=== PATIENT | female | born 1960 | race Caucasian/White ===

== ENCOUNTER → 2022-06-29 16:24 | Outpatient (BNVA) | payer BC, SELFPAY | PROVIDERS: PCP Nurse Practitioner Family; Visit Provider Nurse Practitioner Family | DX: E66.9 Obesity, unspecified (principal); Z68.31 Body mass index [BMI] 31.0-31.9, adult | CPT/HCPCS: 80053; 84443; 85025 ==

== ENCOUNTER → 2023-07-17 09:37 | Outpatient (BNVA) | payer BC, SELFPAY | PROVIDERS: PCP Nurse Practitioner Family; Visit Provider Nurse Practitioner Family | DX: S93.602A Unspecified sprain of left foot, initial encounter (principal); S83.91XA Sprain of unspecified site of right knee, initial encounter; X58.XXXA Exposure to other specified factors, initial encounter; M17.11 Unilateral primary osteoarthritis, right knee | CPT/HCPCS: 73560; 73630 ==

== ENCOUNTER → 2024-04-30 09:14 | Outpatient (BNVA) | payer MEDICARE, SELFPAY | PROVIDERS: PCP Nurse Practitioner Family; Visit Provider Nurse Practitioner Family | DX: M25.561 Pain in right knee (principal); M17.11 Unilateral primary osteoarthritis, right knee | CPT/HCPCS: 73562 ==

== ENCOUNTER → 2024-05-14 08:33 | Outpatient (BNVA) | payer MEDICARE, SELFPAY | PROVIDERS: PCP Nurse Practitioner Family; Visit Provider Physician Assistant | DX: M17.11 Unilateral primary osteoarthritis, right knee; M23.41 Loose body in knee, right knee; M25.561 Pain in right knee; M25.562 Pain in left knee | CPT/HCPCS: 20610; 73560; 73565; 99203; J3301 ==

== ENCOUNTER → 2024-09-11 08:43 | Outpatient (BNVA) | payer MEDICARE, SELFPAY | PROVIDERS: PCP Nurse Practitioner Family; Visit Provider Physician Assistant | DX: M17.11 Unilateral primary osteoarthritis, right knee (principal); M23.41 Loose body in knee, right knee | CPT/HCPCS: 20610; 99213; J3301; J9999 ==

== ENCOUNTER → 2024-12-17 08:52 | Outpatient (BNVA) | payer MEDICARE, OTHER, SELFPAY | PROVIDERS: PCP Nurse Practitioner Family; Visit Provider Physician Assistant | DX: M17.11 Unilateral primary osteoarthritis, right knee (principal); M23.41 Loose body in knee, right knee | CPT/HCPCS: 99214 ==

== ENCOUNTER 2024-12-30 15:19 | Outpatient (CLI) | payer MEDICARE, OTHER, SELFPAY ==
--- NOTE | 2024-12-30 15:30 | CT_ITS ---
WS: [id number] CT RIGHT KNEE, NONCONTRAST TECHNIQUE: Noncontrast CT of the RIGHT knee to include the RIGHT hip and ankle. CLINICAL INFORMATION: surgical planning, Right TKA COMPARISON: None. DLP: 943.[address] scans at [facility] use at least one of these dose optimization techniques: automated exposure control; mA and/or kV adjustment per patient size (includes targeted exams where dose is matched to clinical indication); or iterative reconstruction. FINDINGS: Sigmoid diverticulosis. Advanced tricompartmental arthritis RIGHT knee. Hypertrophic patella. Trace suprapatellar fluid. Calcified loose bodies. Hypertrophic changes along the joint line. Vascular calcification. CT/CT knee RT [facility] [id number] IMPRESSION: Images obtained for preoperative purposes.
== END 2024-12-30 15:20 | disposition home or self-care (01) ==
LOC: RAD 15:20
PROVIDERS: PCP Nurse Practitioner Family; Visit Provider Physician Assistant
DX: Z01.818 Encounter for other preprocedural examination (principal); M13.861 Other specified arthritis, right knee; K57.30 Diverticulosis of large intestine without perforation or abscess without bleeding
CPT/HCPCS: 73700

== ENCOUNTER → 2025-01-15 13:05 | Outpatient (BNVA) | payer MEDICARE, OTHER, SELFPAY | PROVIDERS: PCP Nurse Practitioner Family; Visit Provider Family Medicine | DX: Z01.818 Encounter for other preprocedural examination (principal) | CPT/HCPCS: 81000 ==

== ENCOUNTER → 2025-01-21 11:52 | Outpatient (BNVA) | payer MEDICARE, OTHER, SELFPAY | PROVIDERS: PCP Nurse Practitioner Family; Visit Provider Student in an Organized Health Care Education/Training Program | DX: Z01.818 Encounter for other preprocedural examination (principal) | CPT/HCPCS: 36415; 80053; 81001; 85025 ==

== ENCOUNTER 2025-02-03 14:43 | Observation (INO) | payer MEDICARE, OTHER, SELFPAY ==
[2025-02-03] VITALS (20 sets, daily range): BP systolic 110–173; BP diastolic 69–107; PULSE 74–108; RESP 14–25; TEMP 36.1–36.8; O2SAT 90–99; BMI 32.1
[2025-02-03] MEDS: acetaminophen 1,000 MG/100 ML PIGGYBACK 400 MG IV ×3 (09:11→23:59)
[2025-02-03 09:18] LABS: Hematocrit 44.1 % (36-47); Hemoglobin 14.10 g/dL (11.27-16.99); Mean Corpuscular HGB Conc 32.0 g/dL (30-55); Mean Corpuscular Hemoglobin 29.3 pg (27-33); Mean Corpuscular Volume 91.7 fl (85-98); Nucleated Red Blood Cells % 0 %; Platelet Count 293 10^3/cmm (157-399); Red Blood Count 4.81 10^6/uL (3.85-5.65); White Blood Count 7.06 10^3/uL (3.29-11.43)
[2025-02-03 09:39] LABS: Anion Gap 14.9 (5-19); Blood Urea Nitrogen 17 mg/dL (8-23); Calcium 9.7 mg/dL (8.5-10.5); Carbon Dioxide 24 mmol/L (22-29); Chloride 103 mmol/L (98-107); Creatinine Clr Calc Pharmacy 65.0015; Glucose 96 mg/dL (65-115); Osmolality Calculated 287 mOsm/kg (285-295); Potassium 3.9 mmol/L (3.5-5.1); Sodium 138 mmol/L (136-145)
--- NOTE | 2025-02-03 10:52 | ANES.PREANE2 ---
Pre-Anesthetic Assessment Height/Weight: Height 5 ft 1 in Weight 170 lb Temp Pulse Resp BP Pulse Ox O2 Del Method 97.5 F L 74 18 173/107 94 Room Air 02/03/25 08:53 02/03/25 08:53 02/03/25 08:53 02/03/25 08:53 02/03/25 08:53 02/03/25 09:04 Preop Diagnosis: Knee arthritis Operation Date: 02/03/25 10:25 Proposed Procedures p Horacio Robot Total Knee Arthroplasty(Right) - Keith Garza, DO Was Beta Karlee taken within 24 hours: N/A Was Clonidine taken within 24 hours: N/A Last intake: Intake Last Liquid Date 02/02/25 Last Liquid Time 21:00 Last Solid Date 02/02/25 Last Solid Time 19:00 Social No alcohol and No tobacco Exam alert, oriented x 3, clear to auscultation bilaterally and regular rate & rhythm Airway Submandibular: within normal limits Cervical ROM: within normal limits Mallampati: Class II Dentition: false and partials Anesthetic Plan ASA status: 2 Anesthesia: MAC and Regional (specify below) Other: No prior issues with anesthesia NPO since yesterday evening History of GERD, controlled with omeprazole. No current symptoms Denies any hypertension. Preop BP 173/107. Patient states that she is nervous currently Denies any pulmonary issues Recent labs reviewed acceptable for procedure Plan for spinal anesthetic with peripheral nerve block Medications/Allergies Home Medications ?Medication ?Instructions ?Recorded ?Confirmed ?Last Taken ?Type meloxicam 15 mg tablet 15 mg PO DAILY 1 month #30 tabs 10/04/24 01/30/25 Unknown Rx omeprazole 10 mg capsule,delayed 10 mg PO DAILY 12/17/24 02/03/25 02/02/25 History release Allergies Allergy/AdvReac Type Severity Reaction Status Date / Time Sulfa (Sulfonamide Allergy Intermediate rash Verified 01/30/25 12:37 Antibiotics) casein Allergy Mild unknown Verified 01/30/25 12:37 egg Allergy Mild unknown Verified 01/30/25 12:37 Yeast Allergy Unknown Verified 01/30/25 12:37 Current Medications Generic Name Dose Route Start Last Admin Trade Name Freq PRN Reason Stop Dose Admin Sodium Chloride 1,000 mls @ 30 mls/hr 02/03/25 08:45 02/03/25 09:10 Sodium Chloride 0.9% IV 02/04/25 08:44 30 mls/hr .Q24H BUSTER Administration PFSH Anesthesia Medical History Sprain of right knee Sprain of foot, left Abnormal mammogram of right breast Allergic dermatitis Social History Smoking and tobacco/nicotine status: never used tobacco/nicotine Data Anesthesia 02/03/25 09:03 02/03/25 09:03 Short CBC 02/03/25 Range/Units 09:03 WBC 7.06 (3.29-11.43) 10^3/uL Hgb 14.10 (11.27-16.99) g/dL Hct 44.1 (36-47) % MCV 91.7 (85-98) fl Plt Count 293 (157-399) 10^3/cmm Neut % (Auto) 48.9 % Neut # (Auto) 3.45 (1.8-7.7) 10^3/uL BMP 02/03/25 09:03 Sodium 138 Potassium 3.9 Chloride 103 Carbon Dioxide 24 BUN 17 Creatinine 0.8 Glucose 96 Calcium 9.7 Blood Bank 02/03/25 09:03 Blood Type A Positive Rho(D) Type Rh positive Antibody Screen Negative
--- NOTE | 2025-02-03 11:42 | W.PM.OPSUD ---
Surgery/Procedure H&P Update DATE OF PROCEDURE: February 03, 2025 DATE H&P PERFORMED: 01/21/25 H&P UPDATE INFORMATION: I have reviewed H&P completed within last 30 days, I have examined patient prior to procedure and No changes to prior documentation PREOP DIAGNOSIS: Right knee DJD PRIMARY INDICATION FOR PROCEDURE: Right knee DJD PLANNED PROCEDURE: Operation Date: 02/03/25 10:25 Proposed Procedures p Horacio Robot Total Knee Arthroplasty(Right) - Keith Garza DO
[2025-02-03] MEDS: ceFAZolin 2,000 MG in sodium chloride 0.9% (plus) 50 ML 100 MG IV ×2 (12:07→19:50)
[2025-02-03] MEDS: tranexamic acid 1,000 mg/10mL SDV 1000 MG IV (12:40)
[2025-02-03] MEDS: ROPivacaine 0.2% Premix 100 mL 200 MG INTRA-ARTI (13:00)
[2025-02-03] MEDS: tranexamic acid 1,000 mg/10mL SDV 1000 MG XX (13:00)
--- NOTE | 2025-02-03 14:15 | PM.OP ---
Operative Report Date of procedure: February 03, 2025 Surgeon: Keith Garza DO Principal Solutions Architect: Don Garza PA-C: PA was necessary for assistance in this case with leg positioning retraction and protection of neurovascular structures as well as assistance in implantation wound closure and dressing application. Procedure: Preoperative diagnosis: RIght knee degenerative joint disease Post-op diagnosis: Same Procedure done: RIght total knee arthroplasty, cemented?robotic assisted Horacio Implants: Connie triathlon size 2 femur CR cemented?RIght Connie triathlon size? 2 tibia universal baseplate cemented [place] triathlon symmetric patella size 29 mm Connie triathlon polyethylene 9mm Surgeon: Keith Garza DO Estimated blood?loss: 25 mL Tourniquet 57mins IV fluids: 1600 mL Urine output: 150 mL Complications: None Condition: stable Disposition: floor Brief History: Patient is a 64year-old female with with chronic?RIght knee degenerative joint disease.? Patient has been worked up in the outpatient setting in the orthopedic office at this point time through shared decision making given? [id number] arthritis as well as failed conservative treatment, and pt would?like to proceed with a?RIght total knee arthroplasty.? Through shared decision making elected to proceed with surgical intervention for?RIght total knee arthroplasty.? We talked about continued conservative treatment and surgical intervention as far as the risk benefits complications alternatives surgical and nonsurgical treatment options.? At this point time understanding patient risks with surgery he agrees to proceed with surgical intervention.? Once again? risk with surgery include but are not?limited to make it better make it worse blood clot, heart attack, stroke, on the table, infection, injury to nerves or vessels, persistent pain, arthrofibrosis, implant failure.? Understanding these risks patient agrees to proceed with surgical intervention consent was obtained in the preop.? All questions answered. Procedure: Patient was seen and evaluated in the preoperative holding area.? Consent was reviewed and signed with patient with plan for?RIght total knee arthroplasty.? All questions answered.? Correct extremity marked.? Patient seen and evaluated by the anesthesia department and once cleared for surgery was taken back to the operative suite.? Patient was placed into a supine position on the OR table.? All bony prominences were well-padded.? Patient was appropriately secured to the bed.? Patient underwent anesthesia per the anesthesia department.? Patient received spinal anesthesia and? Ingram catheter was placed.? A nonsterile tourniquet was applied to the?RIght thigh.? At this point in time a final timeout performed.? Patient received appropriate preoperative antibiotics and TXA. Next the?RIght?lower extremity was then prepped and draped in standard orthopedic fashion. Esmarch tourniquet was used exsanguinate the?RIght?lower extremity.? Tourniquet was insufflated to 250 mmHg. A standard anterior incision was made over midline of the knee.? Sharp scalpel excision through skin and subcutaneous tissue full-thickness skin flaps were made.? Fascia was elevated off of the extensor retinaculum was stable with medial parapatellar arthrotomy was then made.? The performed standard sequential releases..? Immediately on entry into the joint patient was found to have severe eburnated bone and tricompartmental arthritic changes noted.? With significant osteophyte formation.? Next the the patella was then stuffed and the knee was then flexed.?? Amelia was placed superiorly around the anterior aspect of the femur this was freed of synovium and I subsequently then placed by 2 femur pins to establish my femur arrays for the Horacio robot.? These were then placed bicortically and? femur array was then appropriately secured with appropriate visualization.? Next attention was turned towards the tibial rays.? These were then drilled sequentially bicortically in parallel fashion and intraincisional.? I then placed my guide as well as my tibial array on in place.? This was appropriately secured and had excellent visualization with the Horacio robot.? Next the tibial checkpoint as well as femur checkpoint were then placed.? At this point time I then subsequently established my head center as well as my medial?lateral malleoli as well as my checkpoints.? Next utilizing standard Horacio technology I then mapped out the appropriate points and confirmation points around the femur as well as the tibia in standard fashion.? Once this was then done I then removed all osteophytes in preparation for dynamic testing.? All osteophytes were removed as well as I removed the ACL and the PCL was excised due to its significant tearing and degeneration noted.? At this point time the knee was brought into full extension and we performed our standard evaluation of our gap balancing stressing his?ligaments and extension as well as flexion appropriate adjustments were made to have appropriate gap balancing in both flexion and extension.? Of note patient did have varus deformity as well as slight recurvatum and corrections were made to the implants to correct deformity to ligamentous tolerances as well as to make a tighter extension gap to accommodate for the slight recurvatum she had at baseline after osteophytes were removed. We get a preoperative plan evaluating our implants which was a size 2 femur and a size 2 tibia.? Next we brought in the Horacio robot and sequentially made our femur cuts.? All excess bony cuts were then removed.? Finally we made our tibial cut.? Once this was done a standard PCL retractor was then placed into this position I excised the medial and?lateral meniscus.? The tibial cut was then subsequently removed all excess bony debris was removed.? I then utilized a?lamina separations scientist and remove the posterior osteophytes.? At this point time sized the tibia and confirmed this was a size 2.? I utilized our blunt probe to establish rotation of tibial implant.? Once this was done I then placed my tibia size 2 trial in appropriate position and then subsequently placed tibial pins to hold this into and trialed up to a size 9 mm poly as well as a size 2 femur which was appropriately impacted in place knee was then subsequently brought into extension. Trials were then assessed,? this was stable with varus valgus stress in extension. Patient had was slightly tight in flexion laterally and had a subtle clicking within the popliteus tendon rubbing over the implant as a result this was then removed and performed over release of the popliteus tendon I subsequently replaced the poly and took the knee through range of motion which had symmetrical gap balances in flexion extension was symmetrical for examination and no rubbing/clicking from the popliteus. I had excellent balance gaps in flexion and extension with varus and valgus stresses. Patient is able to achieve range of motion of the 0 to greater than 115 degrees. At this point I was satisfied with these implants these were then verified and opened on the back table size 2 tibia, size 2 femur,? size 9 mm polythickness.? We did confirm appropriate gap balancing and stresses as well as alignment utilizing? Good Eggs and were satisfied with this plan.? ?At this point time with my trials in place I then towel clip the patella everted this made appropriate measurements subsequently utilizing freehand technique performed by patellar resurfacing this was confirmed to be appropriate resection and subsequently sized to be a 29 mm symmetric.? My drill peg guides were then clamped and appropriate position and appropriate position in the patella for appropriate tracking and parallel with the joint.? Pegs were drilled trial implant was placed and the knee was then subsequently ranged and found to have excellent patellar tracking.? Femur pegs were then drilled. All checkpoints as well as guidepins and arrays were removed and appropriate counts made.? Satisfied with our tibial placement rotation I then utilized the keel punch and prepped the tibia.? At this point time all of our trial implants were removed.?? The wound bed? was thoroughly irrigated and dried and prepped for cementation.? Cement was mixed on the back table.? Once cement was ready this was then covered onto the tibia and the tibial baseplate was then impacted and all excess cement was removed.? Next the polyethylene was then impacted into place on the tibial baseplate.? Next cement was placed onto the femur as well as under the femur implants and impacted in to place and all excess cement was extruded and removed.? Knee was taken into full extension? to clear all excess cement was removed.? Warm saline was placed over the joint.? I then towel clip patella and dried for cementation. cemented the patella into place.? This was all clamped and the cement was allowed to cure.? Thorough irrigation performed with pulse?lavage.? I then placed my periarticular injection while the cement was curing.? Once cured the knee was taken through range of motion and had excellent stability and gaps were balanced in flexion and extension.? Tourniquet was then deflated. hemostasis satisfactory with electrocautery.? Vancomycin powder placed in wound bed for antibiotic infection prophylaxis. Next I then subsequently closed the capsule with Ethibond suture as well as a running strata fix suture.? Knee was then taken through range of motion 30 times.? Next the skin was then closed in?layered fashion of running stratifix sutures of deep and subcutenous tissue and skin.? ?closed in flexion and tiana for the skin.? Incision was covered with Silverlon, with ABDs soft roll and Margarito wrap.? Patient was then awakened from anesthesia and taken to PACU in stable condition. Disposition: Patient taken to PACU in stable condition will be admitted to the floor for pain control PT/OT weight-bear as tolerated?RIght?lower extremity dressing changes as needed, DVT prophylaxis. Pain control. Patient will receive appropriate postoperative antibiotics. patient will be seen today by the internal medicine team for medical management.? Patient will follow up with the office in 2 weeks.? Patient understands agrees with current plan.? All questions answered.
--- NOTE | 2025-02-03 14:36 | XRR_ITS ---
PROCEDURE INFORMATION: Exam: XR Right Knee Exam date and time: 02/03/2025 2:38 PM Age: 64 years old Clinical indication: Device placement; Joint replacement hardware; Prior surgery; Surgery date: Post-operative (0-2 days); Surgery type: R tka; Additional info: S/P R tka, in pacu TECHNIQUE: Imaging protocol: Radiologic exam of the right knee. Views: 1 or 2 views. COMPARISON: CT knee RT [facility] [id number] 12/30/2024 3:33 PM FINDINGS: Bones/joints: Postsurgical changes from right knee arthroplasty. Hardware is intact without concerning malalignment. No periprosthetic fracture. Expected postsurgical air in the joint space. Anterior skin tiana. XR/XR knee RT 1-2V [id number] IMPRESSION: Expected postsurgical changes post right knee arthroplasty without radiographic complications.
--- NOTE | 2025-02-03 14:37 | P.BOP_ITS ---
Date of Procedure: [February 03, 2025] Surgeon: [Dr. Garza DO] Airborne Operations Superintendent(s): [Don Garza PA-C] Procedure(s) performed: [Right knee total arthroplasty with Horacio robotic assist] Findings of the procedure(s): [Right knee degenerative joint disease. Procedure went well as planned] Estimated blood loss: [25 mL] Specimen(s) removed: [Tibial and femur shavings] Post-operative diagnosis: [Right knee degenerative joint disease.]
[2025-02-03] MEDS: fentaNYL 50 mcg/mL INJ 2mL IVP ×2 (14:38→14:52)
--- NOTE | 2025-02-03 14:42 | PM.PACU ---
PACU note Narrative: Patient is a 64-year-old female who just underwent arthroplasty. Pt transferred to PACU in stable condition. Dressing is dry. pt is awake and alert. pt can wiggle toes and plantarflex and dorsiflex foot. pt able to perform straight leg raise, Femoral nerve intact. Distal pulses are palpable toes are warm and well-perfused. Cap refill is normal and under 2 seconds. Sensation to foot is intact. Pain is controlled. Exam: awake Disposition: admitted
--- NOTE | 2025-02-03 15:10 | ANE.PACU2 ---
Inpatient post-anesthesia follow up: Airway intact: Yes Vital signs: Temperature 98.3 F Pulse Rate 70 Respiratory Rate 16 Blood Pressure 152/84 Pulse Oximetry 95 Oxygen Delivery Me thod Room Air Oxygen Flow Rate 6 Fraction of Inspir ed Oxygen Hydration adequate: Yes Nausea and vomiting: No Pain level: 1 Mental status: Baseline
[2025-02-03] MEDS: mupirocin oint 22 gm 1 APPLIC NASAL (16:24)
[2025-02-03] MEDS: sennosides-docusate Tablet 2 TAB PO (16:24)
[2025-02-03] MEDS: calcium carb-vit d 600mg/400unit 1 Tablet 1 EACH PO (16:24)
[2025-02-03] MEDS: chlorhexidine gluconate 0.12% Btl 473 mL 30 ML MUCOUS MEM ×2 (16:25→23:58)
[2025-02-03] MEDS: tranexamic acid 1,000 MG/100 ML PREMIX 600 MG IV (20:29)
[2025-02-03] MEDS: ondansetron 2 mg/ML SDV 2 mL 4 MG IVP (20:53)
--- NOTE | 2025-02-03 21:55 | PM.CONSULT ---
Providers/Reason For Consult Consulting Physician/Specialty*: Toyn Nunez MD hospitalist Reason for Consult*: GERD Requesting Physician: Keith Garza DO Attending Physician: Keith Garza DO Primary Care Provider: Sebastian Chavez History of Present Illness History of Present Illness Kathryn Cartwright is a 64 year old female with history of GERD since her cholecystectomy 1986. She states she took Pepcid and Tums until omeprazole came around and she takes 10 mg daily. If she misses it for couple days she gets GERD. She does not have symptoms now or if she takes it faithfully. She did eat earlier and vomited but denies heartburn. She thinks it is related to the anesthesia. She reports her right knee pain is reasonably well-controlled. Patient denies alcohol or tobacco use Review of Systems Narrative: Cardiovascular no chest pain or palpitations Respiratory no shortness of breath cough wheezing no difficulty with holding urine Hematologic no history of blood clots in the legs or lungs. Patient denies bleeding anywhere currently or history of easy bleeding Medications/Allergies Home Medications ?Medication ?Instructions ?Recorded ?Confirmed ?Last Taken ?Type meloxicam 15 mg tablet 15 mg PO DAILY 1 month #30 tabs 10/04/24 01/30/25 Unknown Rx omeprazole 10 mg capsule,delayed 10 mg PO DAILY 12/17/24 02/03/25 02/02/25 History release Allergies Allergy/AdvReac Type Severity Reaction Status Date / Time Sulfa (Sulfonamide Allergy Intermediate rash Verified 01/30/25 12:37 Antibiotics) casein Allergy Mild unknown Verified 01/30/25 12:37 egg Allergy Mild unknown Verified 01/30/25 12:37 Yeast Allergy Unknown Verified 01/30/25 12:37 Current Medications Generic Name Dose Route Start Last Admin Trade Name Freq PRN Reason Stop Dose Admin Calcium Carbonate 1 each 02/03/25 17:00 02/03/25 16:24 Calcium Carb-Vit D 600mg/400unit 1 Tablet PO 1 each BID BUSTER Administration Chlorhexidine Gluconate 30 ml 02/03/25 17:00 02/03/25 16:25 Chlorhexidine Gluconate 0.12% Btl 473 Ml MUCOUS MEM 30 ml QID BUSTER Administration Lactated Ringer's 1,000 mls @ 100 mls/hr 02/03/25 15:29 02/03/25 16:24 Lactated Ringers IV 100 mls/hr .Q10H BUSTER Administration Acetaminophen 1,000 mg in 100 mls @ 400 mls/hr 02/03/25 16:30 02/03/25 16:24 Acetaminophen IV 02/04/25 08:44 400 mls/hr Q8H BUSTER Administration Cefazolin Sodium 2,000 mg/ 50 mls @ 100 mls/hr 02/03/25 20:00 02/03/25 20:26 Sodium Chloride IV 02/04/25 12:29 Infused Q8H BUSTER Infusion Protocol Mupirocin 1 applic 02/03/25 17:00 02/03/25 16:24 Mupirocin Oint 22 Gm NASAL 02/08/25 16:59 1 applic BID BUSTER Administration Protocol Ondansetron HCl 4 mg 02/03/25 15:29 02/03/25 20:53 Ondansetron 2 Mg/Ml Sdv 2 Ml IVP 4 mg Q6H PRN Administration NAUSEA AND VOMITING Polysaccharide Iron Complex 150 mg 02/03/25 18:00 02/03/25 18:05 Iron Polysaccharide Complex 150 Mg Capsule PO 150 mg BIDWM BUSTER Administration Senna/Docusate Sodium 2 tab 02/03/25 17:00 02/03/25 16:24 Sennosides-Docusate Tablet PO 2 tab BID BUSTER Administration PFSH Acute PFSH: Medical History (Updated 02/03/25 @ 21:58 by Tony Nunez MD) GERD (gastroesophageal reflux disease) Sprain of right knee Sprain of foot, left Abnormal mammogram of right breast Allergic dermatitis Social History Smoking and tobacco/nicotine status: never used tobacco/nicotine Vitals/I&O/Wt Last Vital Signs Temp 98.2 F 02/03/25 19:51 Pulse 94 02/03/25 20:53 Resp 16 02/03/25 20:53 BP 131/75 02/03/25 20:53 Pulse Ox 95 02/03/25 20:53 O2 Del Method Room Air 02/03/25 20:53 O2 Flow Rate 6 02/03/25 14:45 02/03/25 02/03/25 02/03/25 06:59 14:59 22:59 Intake Total 1650 / 1650 50 / 1700 Output Total 175 / 175 1300 / 1475 Balance 1475 / 1475 -1250 / 225 Weight last 48 hrs Weight 77.111 kg Physical Exam Narrative: General well-developed well-nourished female in no acute cardiopulmonary stress CV regular rate and rhythm Lungs clear to auscultation bilaterally Abdomen positive bowel tones soft nontender Calves no tenderness cords or asymmetry the right knee down to the ankle and foot is in an Margarito wrap. Urinary Catheter Management: Ingram: Cath Placed During This Visit: yes Reason for Continuing Indwelling Catheter: Perioperative Use in Selected Surgeries Urinary Catheter Date of Insertion: 02/03/25 Urinary Catheter Time of Insertion: 12:26 Data 02/03/25 09:03 02/03/25 09:03 A&P Assessment and plan 1. Osteoarthritis of knee: Status post right total knee arthroplasty. Plan apixaban 2.5 mg twice a day for 35 days starting tomorrow 2. GERD (gastroesophageal reflux disease): Omeprazole will be substituted for pantoprazole 40 mg daily while here at this hospital PDMP PDMP Reviewed: Not Reviewed Coding Level of Care Code 66727 Diagnoses Osteoarthritis of knee M17.9 GERD (gastroesophageal reflux disease) K21.9 Time Spent (min) 25
[2025-02-04] VITALS (7 sets, daily range): BP systolic 152–160; BP diastolic 84–98; PULSE 70–78; RESP 16; TEMP 36.7–36.8; O2SAT 94–95
[2025-02-04] MEDS: ceFAZolin 2,000 MG in sodium chloride 0.9% (plus) 50 ML 100 MG IV ×2 (04:11→12:56)
[2025-02-04] MEDS: multivitamin therapeutic Tablet 1 TAB PO (04:12)
[2025-02-04] MEDS: mupirocin oint 22 gm 1 APPLIC NASAL (04:12)
[2025-02-04] MEDS: calcium carb-vit d 600mg/400unit 1 Tablet 1 EACH PO (04:12)
[2025-02-04] MEDS: chlorhexidine gluconate 0.12% Btl 473 mL 30 ML MUCOUS MEM (04:13)
[2025-02-04] MEDS: sennosides-docusate Tablet 2 TAB PO (04:14)
[2025-02-04 04:38] LABS: Hematocrit 37.3 % (36-47); Hemoglobin 12.00 g/dL (11.27-16.99); Mean Corpuscular HGB Conc 32.2 g/dL (30-55); Mean Corpuscular Hemoglobin 29.5 pg (27-33); Mean Corpuscular Volume 91.6 fl (85-98); Nucleated Red Blood Cells % 0 %; Platelet Count 250 10^3/cmm (157-399); Red Blood Count 4.07 10^6/uL (3.85-5.65); White Blood Count 11.87 10^3/uL (3.29-11.43)
[2025-02-04] MEDS: oxyCODONE 5 mg IR Tab/Cap PO ×3 (04:38→15:17)
[2025-02-04 04:54] LABS: Anion Gap 15.6 (5-19); Blood Urea Nitrogen 9 mg/dL (8-23); Calcium 8.6 mg/dL (8.5-10.5); Carbon Dioxide 23 mmol/L (22-29); Chloride 106 mmol/L (98-107); Creatinine Clr Calc Pharmacy 65.0015; Glucose 94 mg/dL (65-115); Osmolality Calculated 290 mOsm/kg (285-295); Potassium 3.6 mmol/L (3.5-5.1); Sodium 141 mmol/L (136-145)
[2025-02-04] MEDS: acetaminophen 1,000 MG/100 ML PIGGYBACK 400 MG IV (08:31)
--- NOTE | 2025-02-04 12:33 | PM.DCS ---
Discharge Providers Date of Admission: 02/03/25 14:43 Date of Discharge: February 04, 2025 Attending Provider at Admission: Keith Garza DO Attending Provider at Discharge: Keith Garza DO Consults: Hospitalist Primary Care Provider: Sebastian Chavez Diagnoses at Discharge Discharge Diagnosis 1. Status post total right knee replacement using cement: 2. Osteoarthritis of knee: 3. GERD (gastroesophageal reflux disease): Reason for Visit Reason for Visit: M17.11 Brief History: Status post right total knee arthroplasty?Horacio robotic assisted Hospital Course Hospital Course Patient presented to the preoperative holding area with plan for [right] total knee arthroplasty after patient has been worked up in the outpatient setting for failed conservative treatment of [right] knee degenerative joint disease. Once cleared by anesthesia for surgery patient subsequently was taken back to the operative suite underwent anesthesia per anesthesia department and then subsequently underwent a [right] total knee arthroplasty. Procedure was performed without any complications patient was taken to PACU in stable condition patient recovered well in PACU and then was admitted to the floor postoperatively internal medicine was consulted and on board for medical management and assistance with care. Patient received appropriate PT/OT, postoperative antibiotics, postoperative TXA, pain control, postoperative DVT prophylaxis. Elevation and ice. Patient encouraged for knee range of motion allowed weightbearing as tolerated to the operative lower extremity. Dressing was changed as needed, labs were monitored daily. Patient recovered well postoperatively and worked well and progressed well with therapy. It was determined on postoperative day 1 the patient was stable for discharge from an orthopedic standpoint and medicine. Patient was comfortable with discharge and plan was discharged home. Patient received appropriate discharge instructions as well as pain medication and DVT prophylaxis postoperatively. Given appropriate instructions for dressing management. Patient will follow-up with Dr. Garza/orthopedics in the office in 2 weeks. All questions answered. Understand if there is any issues questions or concerns and contact the office. Physical Exam Narrative: Right knee examination: Dressing on in place, clean dry and intact. No evidence of saturation. Patient has normal postoperative swelling and tenderness to palpation to the knee. Compartments are soft compressible,'s calf soft and nontender. Sensations intact to light touch distally. Distal pulses are palpable. Patient is able to wiggle toes as well as plantarflex and dorsiflex ankle. Urinary Catheter Management: Ingram: Cath Placed During This Visit: yes, but has since been removed by the nurse Reason for Continuing Indwelling Catheter: Decision to DC Catheter Urinary Catheter Date of Insertion: 02/03/25 Urinary Catheter Time of Insertion: 12:26 Date Urinary Catheter Removed: 02/03/25 Time Urinary Catheter Discontinued: 23:00 Discharge Data Studies Completed and Pending Completed Studies During Hospitalization Category Date Time Status XR knee RT 1-2V 26820 Routine Exams 02/03/25 14:36 Completed Pending at discharge Category Date Time Status Basic Metabolic Panel AM LABS Lab 02/05/25 04:00 Ordered Basic Metabolic Panel AM LABS Lab 02/06/25 04:00 Ordered Complete Blood Count w/Auto AM LABS Lab 02/05/25 04:00 Ordered Complete Blood Count w/Auto AM LABS Lab 02/06/25 04:00 Ordered Radiology Impressions Knee X-Ray 02/03/25 14:36 IMPRESSION: Expected postsurgical changes post right knee arthroplasty without radiographic complications. Laboratory Results WBC 11.87 10^3/uL (3.29-11.43) H 02/04/25 04:30 RBC 4.07 10^6/uL (3.85-5.65) 02/04/25 04:30 Hgb 12.00 g/dL (11.27-16.99) 02/04/25 04:30 Hct 37.3 % (36-47) 02/04/25 04:30 MCV 91.6 fl (85-98) 02/04/25 04:30 MCH 29.5 pg (27-33) 02/04/25 04:30 MCHC 32.2 g/dL (30-55) 02/04/25 04:30 RDW 14.2 % (12.1-15.1) 02/04/25 04:30 Plt Count 250 10^3/cmm (157-399) 02/04/25 04:30 MPV 10.1 fL (7.4-10.4) 02/04/25 04:30 Neut % (Auto) 61.9 % 02/04/25 04:30 Lymph % (Auto) 28.4 % 02/04/25 04:30 [place] % (Auto) 8.8 % 02/04/25 04:30 Eos % (Auto) 0.3 % 02/04/25 04:30 Baso % (Auto) 0.3 % 02/04/25 04:30 Neut # (Auto) 7.35 10^3/uL (1.8-7.7) 02/04/25 04:30 Lymph # (Auto) 3.4 10^3/uL (0.8-4.8) 02/04/25 04:30 [place] # (Auto) 1.0 10^3/uL (0.2-0.9) H 02/04/25 04:30 Eos # (Auto) 0.0 10^3/uL (0.0-0.8) 02/04/25 04:30 Baso # (Auto) 0.0 10^3/uL (0.0-0.1) 02/04/25 04:30 Nucleated RBC % (auto) 0 % 02/04/25 04:30 Nucleated RBCs # 0.0 /100WBC 02/04/25 04:30 Sodium 141 mmol/L (136-145) 02/04/25 04:30 Potassium 3.6 mmol/L (3.5-5.1) 02/04/25 04:30 Chloride 106 mmol/L (98-107) 02/04/25 04:30 Carbon Dioxide 23 mmol/L (22-29) 02/04/25 04:30 Anion Gap 15.6 (5-19) 02/04/25 04:30 BUN 9 mg/dL (8-23) 02/04/25 04:30 Creatinine 0.8 mg/dL (0.5-0.9) 02/04/25 04:30 GFR Calculation 71.8 mL/min (90-130) L 02/04/25 04:30 Glucose 94 mg/dL (65-115) 02/04/25 04:30 Calculated Osmolality 290 mOsm/kg (285-295) 02/04/25 04:30 Calcium 8.6 mg/dL (8.5-10.5) 02/04/25 04:30 Blood Type A Positive 02/03/25 09:03 Rho(D) Type Rh positive 02/03/25 09:03 Antibody Screen Negative 02/03/25 09:03 Vitals Last Vital Signs Temp 98.1 F 02/04/25 09:25 Pulse 76 02/04/25 09:25 Resp 16 02/04/25 09:25 BP 160/98 02/04/25 09:25 Pulse Ox 95 02/04/25 09:25 O2 Del Method Room Air 10/21/25 09:25 O2 Flow Rate 6 02/03/25 14:45 Discharge Plan Discharge Patient Disposition: Home Health Service Condition: Stable Prescriptions: New Eliquis 2.5 mg tablet 2.5 mg PO BID 14 Days Qty: 28 0RF cefadroxil 500 mg capsule 500 mg PO BID 7 Days Qty: 14 0RF oxycodone 5 mg tablet 5 mg PO Q6H PRN (Reason: pain postop) 7 Days Qty: 28 0RF calcium carbonate-vitamin D3 [Calcium 600 + D(3)] 600 mg-10 mcg (400 unit) tablet 1 tab PO DAILY 30 Days Qty: 30 0RF Continued omeprazole 10 mg capsule,delayed release(DR/EC) 10 mg PO DAILY No Action meloxicam 15 mg tablet 15 mg PO DAILY 30 Days Qty: 30 2RF Calibration Specialist OK for DC: Orthopedics and Hospitalist Discharge Order = DC NOW: Discharge Order (Routine); Ordered 02/04/25 Ordered By: Keith Garza Other Ambulatory Orders: DME: Walker (Order) Location: None Selected Ordered By: Keith Garza Referrals: [facility] [Outside] Keith Garza DO [Physician, Orthopedics] - 02/18/25 2:00 pm Discharge Diet: Regular Discharge Activity: Limit activity as instructed and Use walker/crutches as instructed Patient Instructions: Acute Wound Care (DC), Precautions after Total Joint Replacement Surgery (GEN), Total Knee Replacement (GEN), Opioid Safety, Post Anesthesia Care, Patient Portal & Jannette Instructions Activity Restrictions/Additional Instructions: Orthopedic discharge instructions Keep incisions clean dry and intact, leave Silverlon bandage dressings on in place for 7 days after that may rinse incisions with warm soapy water pat dry and redress with a dry dressing/New Silverlon dressing Silverlon dressing can be covered with Saran wrap to prevent getting wet and okay to then shower after 3 days Patient may weight-bear as tolerate to the operative extremity Utilize walker as needed Encourage knee range of motion Ice and elevate as needed for pain and swelling Take pain medication as prescribed Take antinausea medication as needed Take antibiotic as prescribed for infection prevention Pain medication can cause constipation. take [id number] stool softeners and or MiraLAX. Encourage utilizing incentive spirometry doing 10 deep breaths every hour so prevents postoperative fevers Take prescribed Eliquis twice daily for the next 14 days for blood clot prevention May supplement for pain with Tylenol [id number] as needed(1000 mg every 8 hours-do not exceed more than 3000mg in 24-hour period) No baths or soaks Follow-up in the orthopedic office in 2 weeks Contact the office for any questions or concerns Discharge Attestations Time Spent in Discharge Care*: less than 30 min Quality Metrics Clinical Quality Measures [ No reported AMI, CVA or VTE this stay] Coding Level of Care Code Acute Code for Chg Fwd Diagnoses Status post total right knee replacement using cement Z96.651 Osteoarthritis of knee M17.9 GERD (gastroesophageal reflux disease) K21.9 Time Spent (min) 25
[2025-02-04] MEDS: APIXABAN 2.5 MG TABLET PO (12:56)
--- NOTE | 2025-02-04 15:04 | P.PN_ITS ---
Subjective 2 Subjective: Patient is up in the room awaiting my arrival. at bedside. They have an hour and a half to drive patient admits that her blood pressure still high this time and will keep an eye on follow-up with primary physician for treatment Vitals/I&O/Wt Last Vital Signs Temp 98.1 F 02/04/25 09:25 Pulse 76 02/04/25 12:00 Resp 16 02/04/25 12:00 BP 159/92 02/04/25 12:00 Pulse Ox 95 02/04/25 09:25 O2 Del Method Room Air 02/04/25 09:25 O2 Flow Rate 6 02/03/25 14:45 02/04/25 02/04/25 02/04/25 06:59 14:59 22:59 Intake Total 1150 / 3050 Output Total 200 / 1675 Balance 950 / 1375 Weight last 48 hrs Weight 77.111 kg Physical Exam 2 Narrative: General well-developed well-nourished female in no acute cardiopulmonary stress CV regular rate and rhythm Lungs clear to auscultation bilaterally Calves no tenderness cords but right knee is enlarged versus left right knee down to the ankle and foot is in an Margarito wrap. Urinary Catheter Management: Ingram: Cath Placed During This Visit: yes, but has since been removed by the nurse Reason for Continuing Indwelling Catheter: Decision to DC Catheter Urinary Catheter Date of Insertion: 02/03/25 Urinary Catheter Time of Insertion: 12:26 Date Urinary Catheter Removed: 02/03/25 Time Urinary Catheter Discontinued: 23:00 Data 02/04/25 04:30 02/04/25 04:30 A&P Assessment and plan 1. Osteoarthritis of knee: Status post right total knee arthroplasty. Plan apixaban 2.5 mg twice a day for 28 days 2. GERD (gastroesophageal reflux disease): Resume omeprazole 3. Hypertension: Blood pressures run high this admission and also December evaluations. I would recommend treatment with medication such as losartan follow-up primary care physician PDMP PDMP Reviewed: Not Reviewed Attestations 2 Medical Necessity Statement*: Patient is ready for discharge Coding Level of Care Code 46236 Diagnoses Osteoarthritis of knee M17.9 GERD (gastroesophageal reflux disease) K21.9 Hypertension I10 Time Spent (min) 15
== END 2025-02-04 15:22 | disposition home health service (06) ==
LOC: OBGYN 14:43
PROVIDERS: Physician Assistant; Admitting Provider Student in an Organized Health Care Education/Training Program; PCP Nurse Practitioner Family; Visit Provider Student in an Organized Health Care Education/Training Program
PROC: 8E0Y0CZ Robotic Assisted Procedure of Lower Extremity, Open Approach (ICD-10-PCS; CPT 27447; principal; 2025-02-03 10:25)
DX: M17.11 Unilateral primary osteoarthritis, right knee (principal); K21.9 Gastro-esophageal reflux disease without esophagitis
CPT/HCPCS: 27447; 20985; 36415; 51702; 73560; 80048; 85025; 86850; 86900; 97110; 97116; 97161; 97165; 97530; A4216; C1713; C1776; G0378; J0131; J0169; J0360; J0690; J1885; J2250; J2405; J2704; J2795; J3010; J3373; J7030; J7120; J9999; L8699

== ENCOUNTER → 2025-02-18 13:57 | Outpatient (BNVA) | payer MEDICARE, OTHER, SELFPAY | PROVIDERS: PCP Nurse Practitioner Family; Visit Provider Physician Assistant | DX: Z98.890 Other specified postprocedural states (principal); Z96.651 Presence of right artificial knee joint | CPT/HCPCS: 73560; 73565; 99024 ==

== ENCOUNTER 2025-03-12 10:30 | Outpatient (RCR) | payer MEDICARE, OTHER, SELFPAY | END 2025-03-16 23:59 | disposition home or self-care (01) | LOC: WPT 10:30 | PROVIDERS: PCP Nurse Practitioner Family; Visit Provider Student in an Organized Health Care Education/Training Program | DX: Z47.1 Aftercare following joint replacement surgery (principal); Z96.651 Presence of right artificial knee joint | CPT/HCPCS: 97110; 97161 ==

== ENCOUNTER → 2025-04-01 15:03 | Outpatient (BNVA) | payer MEDICARE, OTHER, SELFPAY | PROVIDERS: PCP Nurse Practitioner Family; Visit Provider Student in an Organized Health Care Education/Training Program | DX: Z96.651 Presence of right artificial knee joint (principal) | CPT/HCPCS: 73560; 73565; 99024 ==

== ENCOUNTER 2025-04-16 10:00 | Outpatient (RCR) | payer MEDICARE, OTHER, SELFPAY | END 2025-04-16 23:59 | disposition home or self-care (01) | LOC: WPT 10:00 | PROVIDERS: PCP Nurse Practitioner Family; Visit Provider Student in an Organized Health Care Education/Training Program | DX: Z47.89 Encounter for other orthopedic aftercare (principal) | CPT/HCPCS: 97110; 97112; 97116; 97140; 97530 ==